=== PATIENT | male | born 1965 | race Caucasian/White ===

== ENCOUNTER 2022-05-22 07:55 | Inpatient (IN) | payer MEDICAID ==
[~2022-05-22] VITALS: Ht 167.6 cm; Wt 81.2 kg
[2022-05-22 08:20] VITALS: BP_SYST 113
--- NOTE | 2022-05-22 08:40 | NUR ---
PT BIBA AWAKE AND ALERT AOX4. NO SOB OR DISTRESS. PT COMING IN FOR MEDICAL CLEARANCE FOR WOUND TO RIGHT HIP. RIGHT HIP HAS A WOUND AND RIGHT THIGH IS SWOLLEN AND WARM TO TOUCH. PT C/O PAIN TO RIGHT UPPER LEG 01/15.
[2022-05-22] MEDS ORDERED: AMOXICILLIN/POTASSIUM CLAV 875 MG TABLET PO ONE (08:45)
--- NOTE | 2022-05-22 08:45 | NUR ---
SR SIN AT BEDSIDE
[2022-05-22] MEDS ORDERED: NACL 0.9% 1,000 ML IV ONE ×2 (09:00→12:00)
[2022-05-22] MEDS ORDERED: KETOROLAC TROMETHAMINE 30 MG VIAL IVP ONE (09:00)
[2022-05-22 09:10] LABS: BASOPHILS # (AUTO) 0.1 K/uL (0.0-0.2); BASOPHILS % (AUTO) 0.6 % (0.0-2.0); EOSINOPHILS # (AUTO) 0.5 K/uL (0.0-0.4); EOSINOPHILS % (AUTO) 3.6 % (0.0-4.0); HEMOGLOBIN 9.5 g/dL (14.0-18.0); LYMPHOCYTES # (AUTO) 1.9 K/uL (1.0-5.5); LYMPHOCYTES % (AUTO) 12.8 % (20.5-51.5); MEAN CORPUSCULAR HEMOGLOBIN 29 pg (27-31); MEAN CORPUSCULAR HGB CONC 34 % (32-36); MEAN CORPUSCULAR VOLUME 85 fL (79.0-98.0); MONOCYTES # (AUTO) 1.8 K/uL (0.0-1.0); MONOCYTES % (AUTO) 12.4 % (1.7-9.3); NEUTROPHILS # (AUTO) 10.3 K/uL (1.8-7.7); NEUTROPHILS % (AUTO) 70.6 % (40.0-70.0); PLATELET COUNT (AUTO) 400 K/uL (130-430); RED BLOOD CELL COUNT(AUTO) 3.31 MIL/uL (4.2-6.2); RED CELL DISTRIBUTION WIDTH 15.1 % (9.0-15.0); WHITE BLOOD COUNT (AUTO) 14.7 K/uL (4.8-10.8)
[2022-05-22] MEDS ORDERED: VANCOMYCIN HCL 1,000 MG in NS 250 ML IV ONE (09:30)
[2022-05-22] MEDS ORDERED: PIPERACILLIN/TAZO 3.375 GM in NS 50 ML IV ONE (09:30)
[2022-05-22 09:37] LABS: CALCIUM 10.6 mg/dL (8.4-11.0); CREATININE 0.78 mg/dL (0.55-1.30)
[2022-05-22 09:42] LABS: ALBUMIN 2.9 g/dL (3.4-4.8); TOTAL BILIRUBIN 0.5 mg/dL (0.0-1.0)
[2022-05-22 09:53] LABS: PROTHROMBIN TIME 10.8 SECS (9.5-12.5)
[2022-05-22] MEDS ORDERED: PIPERACILLIN/TAZOBACTAM 3.375 GM/VIAL (ZOSYN) IV ONE ×2 (09:54→09:56)
--- NOTE | 2022-05-22 10:08 | NUR ---
NOTIFIED ED ADMITTING REGARDING DR. FULLER'S REQUEST FOR ADMISSION/TRANSFER. PER DR. FULLER, PT IS STABLE FOR TRANSFER. WILL CONTACT HUMAN GEOGRAPHY INSTRUCTOR REGARDING THIS MATTER. PER FACESHEET: [facility] JAIME/MEDICAL- ALTYUE
[2022-05-22] MEDS ORDERED: VANCOMYCIN HCL 1000 MG/VIAL IV ONE (10:28)
--- NOTE | 2022-05-22 10:45 | NUR ---
PT TAKEN TO CT W/ CONTRAST
--- NOTE | 2022-05-22 12:12 | NUR ---
ART SALES CONSULTANT HAS NOT PAGED BACK REGARDING PT ADMISSION/TRANSFER. PER DR. FULLER, PAGE FOR ADMISSION DUE TO DELAY OF CARE. PER FACESHEET: [facility]/MEDICAL-ALTAMED DR. TIJERINA IS TALENT MANAGEMENT MANAGER [phone]
[2022-05-22] MEDS ORDERED: INSULIN LISPRO SLIDING SCALE 100 UNITS/ML, 3 ML VIAL (humaLOG) SUBCUT PRN (13:30)
[2022-05-22] MEDS ORDERED: DEXTROSE 50% JECT 50 ML DISP.SYRIN IVP PRN (13:30)
[2022-05-22] MEDS ORDERED: ONDANSETRON HCL 4 MG/2 ML VIAL IVP PRN (13:30)
[2022-05-22] MEDS ORDERED: ACETAMINOPHEN 325 MG TABLET PO PRN (13:30)
[2022-05-22] MEDS ORDERED: MORPHINE 2 MG/ML INJ. SYRINGE IVP PRN (13:30)
[2022-05-22] MEDS ORDERED: DOCUSATE SODIUM 100 MG CAPSULE PO PRN (13:30)
[2022-05-22] MEDS ORDERED: MAGNESIUM SULFATE 50 ML IV PRN (13:30)
[2022-05-22] MEDS ORDERED: LOP600 GT (15:13)
[2022-05-22] MEDS ORDERED: MOM GT (15:13)
[2022-05-22] MEDS ORDERED: SYN50 GT (15:13)
[2022-05-22] MEDS ORDERED: CEL20 GT (15:13)
[2022-05-22] MEDS ORDERED: MORP30TA59 GT (15:13)
[2022-05-22] MEDS ORDERED: NAPR-1172 PO (15:13)
[2022-05-22] MEDS ORDERED: COR25 GT (15:13)
[2022-05-22] MEDS ORDERED: LISI40TA13 GT (15:13)
[2022-05-22] MEDS ORDERED: METF-518 GT (15:13)
[2022-05-22] MEDS ORDERED: CRAN450T9 GT (15:13)
[2022-05-22] MEDS ORDERED: AMLO2.5T2 GT (15:13)
[2022-05-22] MEDS ORDERED: OMEP40CA20 PO (15:13)
[2022-05-22] MEDS ORDERED: ALPR0.5T PO (15:13)
[2022-05-22] MEDS ORDERED: HYG25 GT (15:13)
[2022-05-22] MEDS ORDERED: OXYC20TA55 PO (15:13)
--- NOTE | 2022-05-22 16:31 | NUR ---
Admit bed requested Patient will be admitted to care of Dr. TIJERINA. Admitted to TELE unit. Diagnosis SEPTIC ARTHITIS Inpatient (Yes or No) YES Observation (Yes or No) NO Orientation concerns or request close to nursing station (Yes or No) NO Covid Status NEG On vent or bipap NO Isolation requirements NO Needs a sitter NO From Home (Yes or if No enter name of facility) [facility] Requires Dialysis (Yes or No) NO Med Rec Completed (Yes of No) YES
[2022-05-22] MEDS: PIPERACILLIN/TAZO 3.375/DEX-IS 50 ML IV SCH (18:24)
--- NOTE | 2022-05-22 19:17 | NUR ---
Received report from elliott AMANDA at this time.
--- NOTE | 2022-05-22 19:20 | NUR ---
REPORT GIVEN LESA RN. PT STABLE. VSS
--- NOTE | 2022-05-22 19:21 | NUR ---
Attempted to call report at this time. INstructed by floor nurse that floor charge nurse states to wait till 1944. ER charge nurse agreed as well.
--- NOTE | 2022-05-22 19:45 | NUR ---
Attempted to call report x2. NOtified by floor nurse that floor charge nurse states that they are receiving other patients first from icu at this time. Notified er charge nurse of new information. Unable to give report at this time.
--- NOTE | 2022-05-22 20:07 | NUR ---
Patient will be admitted to care of . Admitted to Tele unit. Will go to room 107 . Belongings list completed. Complete and up to date summary report printed. SBAR report to be given at bedside with opportunity for questions.
--- NOTE | 2022-05-22 23:00 | NUR ---
TELE BOX INFORMED RN THAT TELE BOX IS OFF
[2022-05-22 23:47] LABS: CALCIUM 10.9 mg/dL (8.4-11.0); CREATININE 0.62 mg/dL (0.55-1.30)
--- NOTE | 2022-05-23 01:29 | NUR ---
CONSULTATION PAGED/CALLED Reason for Consultation: SEPTIC ARTHRITIS Person Who was Notified: ANITHA Consulting Physician: LARY LECHUGA Traffic Expert Specialty: Ordering Physician: BREEZY
[2022-05-23 07:31] LABS: CALCIUM 10.4 mg/dL (8.4-11.0); CREATININE 0.61 mg/dL (0.55-1.30)
[2022-05-23 07:41] LABS: BASOPHILS # (AUTO) 0.1 K/uL (0.0-0.2); BASOPHILS % (AUTO) 0.6 % (0.0-2.0); EOSINOPHILS # (AUTO) 0.1 K/uL (0.0-0.4); EOSINOPHILS % (AUTO) 1.1 % (0.0-4.0); HEMATOCRIT 27.9 % (36-54); HEMOGLOBIN 9.5 g/dL (14.0-18.0); LYMPHOCYTES # (AUTO) 1.2 K/uL (1.0-5.5); LYMPHOCYTES % (AUTO) 9.8 % (20.5-51.5); MEAN CORPUSCULAR HEMOGLOBIN 29 pg (27-31); MEAN CORPUSCULAR HGB CONC 34 % (32-36); MEAN CORPUSCULAR VOLUME 85 fL (79.0-98.0); MONOCYTES # (AUTO) 1.2 K/uL (0.0-1.0); NEUTROPHILS # (AUTO) 9.8 K/uL (1.8-7.7); NEUTROPHILS % (AUTO) 78.5 % (40.0-70.0); PLATELET COUNT (AUTO) 417 K/uL (130-430); RED BLOOD CELL COUNT(AUTO) 3.29 MIL/uL (4.2-6.2); RED CELL DISTRIBUTION WIDTH 15.4 % (9.0-15.0); WHITE BLOOD COUNT (AUTO) 12.4 K/uL (4.8-10.8)
[2022-05-23] MEDS: PIPERACILLIN/TAZO 3.375/DEX-IS 50 ML IV SCH ×4 (07:59→18:35)
[2022-05-23 08:00] VITALS: BP_SYST 142
[2022-05-23] MEDS: VANCOMYCIN HCL 1,000 MG in NS 250 ML IV SCH ×3 (08:07→21:08)
[2022-05-23] MEDS: MORPHINE 2 MG/ML INJ. SYRINGE IVP PRN ×3 (08:24→21:16)
[2022-05-23 08:45] VITALS: BP_SYST 142
[2022-05-23] MEDS: amLODIPine BESYLATE 5 MG TABLET GT SCH ×2 (09:00→21:10)
[2022-05-23] MEDS: MILK OF MAGNESIA 30 ML UDC GT SCH (09:00)
[2022-05-23] MEDS: CARVEDILOL 25 MG TABLET (COREG) GT SCH ×2 (09:00→21:09)
[2022-05-23] MEDS: GEMFIBROZIL 600 MG TABLET (LOPID) GT SCH (09:00)
[2022-05-23] MEDS: CHLORTHALIDONE 25 MG TABLET (HYGROTON) GT SCH (09:00)
--- NOTE | 2022-05-23 10:58 | NUR ---
0800 DR LECHUGA AT BEDSIDE EXAMINING PATIENT. INFORMED PT AND GOLD LEAF PRINTER THAT HE WILL ORDER MRI OF THE RIGHT HIP AND TO KEEP THE PATIENT NPO
[2022-05-23 11:49] VITALS: BP_SYST 147
--- NOTE | 2022-05-23 12:00 | NUR ---
Report received from Amy AMANDA. Pt is stable at this time. Pt is asleep but aroudable, otherwise a/ox 4, vs stable, no acute distress noted, NSR on tele. NPO called MD to obtain diet. Repositioned and turned q2 hours to prevent skin breakdown. Awaiting for a working camera to take pictures of multiple wounds.Right groin lesion with drainage with foul smell noted, left and right buttocks with pressure ulcer noted, and right hip redness and warm to touch noted. Labs reviewed. K 3.0 will give potassium chloride as ordered. Assuming care for pt.
[2022-05-23] MEDS: POTASSIUM CHLORIDE 20 MEQ TAB.PRT.SR PO PRN (13:36)
[2022-05-23 16:05] VITALS: BP_SYST 146
--- NOTE | 2022-05-23 16:49 | NUR ---
SUMMARY OF CARE LATE ENTRY DUE TO PT CARE 0800- RECEIVED REPORT FROM TREASURE WEBSTER. PT IS BED , DR LECHUGA AT THE BEDSIDE. ASSISTED PATIENT IN TURNING FOR MD TO EXAMINE. PLAN OF CARE DISCUSSED WITH PATIENT. IV ANTIBIOTICS ADMINISTERED. KEPT PT CLEAN AND DRY 1230- REPORT GIVEN TO MÓNICA WHO WILL TAKE OVER PT CARE
--- NOTE | 2022-05-23 17:50 | NUR ---
ORIANA: NAIMA with Sandra Colon/Angelica # [phone], requesting the melvina gastelum to call me back re transfer pt to higher level of care for resection of femoral head and antibiotic spacer. Addendum: 05/23/22 at 1821 by Miriam Ryan RN S/w melvina GASTELUM/Génesis for the transfer to [facility]. She will have peer to peer with dr. Henry tomorrow and planing to send pt to [facility]. Faxing the referral package fax # [phone], tel [phone].
--- NOTE | 2022-05-23 18:00 | NUR ---
Wound photos taken and filed in the chart. Pt stable at this time.
--- NOTE | 2022-05-23 19:15 | NUR ---
OPENING NOTES Patient resting in bed - no s/s pain or distress noted. Respirations even and unlabored - head of bed elevated. IV site patent - no s/s redness, infection, or infiltration. Bed locked and in lowest position - call light within reach. bed alarm on.
[2022-05-23 20:00] VITALS: BP_SYST 153
--- NOTE | 2022-05-23 20:19 | NUR ---
Report given to Caesar AMANDA. Pt stable at this time.
[2022-05-24] MEDS: PIPERACILLIN/TAZO 3.375/DEX-IS 50 ML IV SCH ×5 (00:29→23:47)
[2022-05-24 00:33] VITALS: BP_SYST 130
[2022-05-24] MEDS: MORPHINE 2 MG/ML INJ. SYRINGE IVP PRN ×6 (01:12→22:23)
[2022-05-24] MEDS: LEVOTHYROXINE SODIUM 0.05 MG TABLET GT SCH (06:53)
--- NOTE | 2022-05-24 08:00 | NUR ---
NOTES 0800- PATIENT IN BED, TOOK BREAKFAST, LEFT LOWER LEG EXTREMITIES AND LEFT HIP SWOLLEN. 1100- DR PRADO CAME AND SAW PATIENT, TO START LOVENOX.
[2022-05-24 08:06] LABS: BASOPHILS # (AUTO) 0.1 K/uL (0.0-0.2); BASOPHILS % (AUTO) 0.9 % (0.0-2.0); EOSINOPHILS # (AUTO) 0.2 K/uL (0.0-0.4); EOSINOPHILS % (AUTO) 1.6 % (0.0-4.0); HEMATOCRIT 27.4 % (36-54); HEMOGLOBIN 9.4 g/dL (14.0-18.0); LYMPHOCYTES # (AUTO) 2.2 K/uL (1.0-5.5); LYMPHOCYTES % (AUTO) 18.4 % (20.5-51.5); MEAN CORPUSCULAR HEMOGLOBIN 29 pg (27-31); MEAN CORPUSCULAR HGB CONC 34 % (32-36); MEAN CORPUSCULAR VOLUME 85 fL (79.0-98.0); MONOCYTES # (AUTO) 1.3 K/uL (0.0-1.0); MONOCYTES % (AUTO) 10.8 % (1.7-9.3); NEUTROPHILS # (AUTO) 8.2 K/uL (1.8-7.7); NEUTROPHILS % (AUTO) 68.3 % (40.0-70.0); PLATELET COUNT (AUTO) 424 K/uL (130-430); RED BLOOD CELL COUNT(AUTO) 3.23 MIL/uL (4.2-6.2); RED CELL DISTRIBUTION WIDTH 15.4 % (9.0-15.0)
[2022-05-24 08:45] LABS: CALCIUM 9.8 mg/dL (8.4-11.0); CREATININE 0.66 mg/dL (0.55-1.30)
[2022-05-24 09:27] VITALS: BP_SYST 153
--- NOTE | 2022-05-24 10:01 | NUR ---
HIGH ALERT NOTE: Called Dr. Momin back at [phone] identified within the medical roster to verify physician authenticity.
[2022-05-24] MEDS: CARVEDILOL 25 MG TABLET (COREG) GT SCH ×2 (10:57→21:09)
[2022-05-24] MEDS: GEMFIBROZIL 600 MG TABLET (LOPID) GT SCH (10:58)
[2022-05-24] MEDS: CHLORTHALIDONE 25 MG TABLET (HYGROTON) GT SCH (10:58)
[2022-05-24] MEDS: amLODIPine BESYLATE 5 MG TABLET GT SCH ×2 (10:59→21:08)
[2022-05-24] MEDS ORDERED: POTASSIUM CHLORIDE 40 MEQ, LIDOCAINE JECT 2% PF 100 MG 50 MG in NS 250 ML IV ONE (11:00)
[2022-05-24] MEDS: POTASSIUM CHLORIDE 20 MEQ TAB.PRT.SR PO PRN (11:01)
[2022-05-24] MEDS: VANCOMYCIN HCL 1,000 MG in NS 250 ML IV SCH ×2 (11:02→21:09)
[2022-05-24 11:29] VITALS: BP_SYST 155
[2022-05-24] MEDS ORDERED: ENOXAPARIN SODIUM 40 MG/0.4 ML SYRINGE SUBCUT ONE (12:00)
[2022-05-24] MEDS: MILK OF MAGNESIA 30 ML UDC GT SCH (12:41)
[2022-05-24] MEDS ORDERED: MORPHINE 2 MG/ML INJ. SYRINGE IVP ONE (14:15)
[2022-05-24 15:28] VITALS: BP_SYST 149
--- NOTE | 2022-05-24 15:47 | NUR ---
Dietitian Recommendations Initiate dual nutrition modalities: * CCHO, 2 gm Na diet * Glucerna 1.5 at 55 ml/hr (goal rate), Oracio BID, Free Water Flush: 200 ml Q6h via GT EN Provides: 2140 kcal/day, 114 gm protein/day, and 1802 ml free water EN Meets: 95% of upper end of estimated caloric needs, 88% of upper end of estimated protein needs, and 90% of lower end of estimated fluid needs LP, MS, RD Please refer to Nutrition Assessment for details. Addendum: 05/24/22 at [address] Amended: Links added.
[2022-05-24 20:20] VITALS: BP_SYST 152
--- NOTE | 2022-05-24 21:40 | NUR ---
Pericare/Wound care Pt incontinent of soft stool. Pericare provided. Sacral dressing changed as needed. Z guard applied to periwound, no drainage, no odor noted. Pt tolerated well. Pt repositioned.
--- NOTE | 2022-05-24 22:23 | NUR ---
Pain Pt c/o 01/15 ache/sharp R. hip pain. Medicated with Morphine 2mg IVP as needed. Encouraged pt to do deep breathing, coughing exercise, pt verb understanding. Call light within reach.
[2022-05-25] VITALS: BP_SYST 158
[2022-05-25] MEDS: MORPHINE 2 MG/ML INJ. SYRINGE IVP PRN ×6 (02:28→21:12)
[2022-05-25] MEDS: PIPERACILLIN/TAZO 3.375/DEX-IS 50 ML IV SCH ×3 (06:06→19:08)
[2022-05-25] MEDS: LEVOTHYROXINE SODIUM 0.05 MG TABLET GT SCH (06:06)
--- NOTE | 2022-05-25 07:00 | NUR ---
Closing notes/Wound care Pt alert, awake, watching TV. R. upper thigh dressing soiled with serousangenous drainage, no odor. Cleansed with NS, patted dry, and applied guaze and covered with tegarderm dressing. Pt tolerated well. GT feeding running at ordered rate with FWF 200ml, tolerating well. Pt incontinent of BM, pericare provided. Call light within reach. Safety maintained. To endorse to AM nurse.
--- NOTE | 2022-05-25 07:34 | NUR ---
Opening Notes Pt. is AAOx4, no signs of acute distress, fall precautions in place, call light within reach, pressure wound precautions in place and patient is assisted in turning every 2 hours.
[2022-05-25] MEDS: GEMFIBROZIL 600 MG TABLET (LOPID) GT SCH (08:48)
[2022-05-25] MEDS: ENOXAPARIN SODIUM 40 MG/0.4 ML SYRINGE SUBCUT SCH (08:48)
[2022-05-25] MEDS: CHLORTHALIDONE 25 MG TABLET (HYGROTON) GT SCH (08:49)
[2022-05-25] MEDS: CARVEDILOL 25 MG TABLET (COREG) GT SCH ×2 (08:49→21:10)
[2022-05-25] MEDS: MILK OF MAGNESIA 30 ML UDC GT SCH ×2 (08:50→09:00)
[2022-05-25] MEDS: amLODIPine BESYLATE 5 MG TABLET GT SCH ×2 (08:50→21:09)
[2022-05-25 08:59] VITALS: BP_SYST 151
[2022-05-25 09:56] LABS: CALCIUM 10.1 mg/dL (8.4-11.0); CREATININE 0.67 mg/dL (0.55-1.30)
[2022-05-25 10:05] LABS: BASOPHILS # (AUTO) 0.2 K/uL (0.0-0.2); BASOPHILS % (AUTO) 1.2 % (0.0-2.0); EOSINOPHILS # (AUTO) 0.5 K/uL (0.0-0.4); EOSINOPHILS % (AUTO) 3.8 % (0.0-4.0); HEMOGLOBIN 9.7 g/dL (14.0-18.0); LYMPHOCYTES # (AUTO) 2.9 K/uL (1.0-5.5); LYMPHOCYTES % (AUTO) 22.8 % (20.5-51.5); MEAN CORPUSCULAR HEMOGLOBIN 29 pg (27-31); MEAN CORPUSCULAR HGB CONC 33 % (32-36); MEAN CORPUSCULAR VOLUME 85 fL (79.0-98.0); MONOCYTES # (AUTO) 1.2 K/uL (0.0-1.0); MONOCYTES % (AUTO) 9.4 % (1.7-9.3); NEUTROPHILS # (AUTO) 8.1 K/uL (1.8-7.7); NEUTROPHILS % (AUTO) 62.8 % (40.0-70.0); PLATELET COUNT (AUTO) 413 K/uL (130-430); RED CELL DISTRIBUTION WIDTH 15.3 % (9.0-15.0); WHITE BLOOD COUNT (AUTO) 12.9 K/uL (4.8-10.8)
[2022-05-25] MEDS: VANCOMYCIN HCL 1,000 MG in NS 250 ML IV SCH ×2 (10:29→21:21)
[2022-05-25 11:25] VITALS: BP_SYST 153
--- NOTE | 2022-05-25 13:18 | NUR ---
Critical Micro Informed Dr. Roque of positive MRSA result, no orders given.
[2022-05-25] MEDS ORDERED: MORPHINE 2 MG/ML INJ. SYRINGE IVP ONE (13:30)
[2022-05-25 15:26] VITALS: BP_SYST 148
[2022-05-25] MEDS: POTASSIUM CHLORIDE 20 MEQ TAB.PRT.SR PO PRN (17:29)
--- NOTE | 2022-05-25 17:29 | NUR ---
Potassium level is 3.3, prn oral potassium tablets given total of 40 meqs, prn parameter give if less than 3.5.
--- NOTE | 2022-05-25 19:57 | NUR ---
Closing Note Pt. is AAOx4, had an episode of loose stool, pericare rendered and dressing on bilateral buttocks changed, cleanses with ns and applied barrier cream along with foam dressing. Full SBAR report given to TREASURE Dean, and endorsed to give prn pain medication once due since pt. is currently reporting pain after turning. Addendum: 05/25/22 at 1959 by [facility] Lauren, TREASURE AMANDA Also endorsed to Dianne that final micro results for the wound on patients thigh have resulted, paged twice with no callback.
[2022-05-25 20:00] VITALS: BP_SYST 174
[2022-05-25] MEDS: MUPIROCIN 2% TOPICAL OINTMENT 22 GM NS SCH (21:12)
[2022-05-26] VITALS: BP_SYST 151
[2022-05-26] MEDS: PIPERACILLIN/TAZO 3.375/DEX-IS 50 ML IV SCH ×3 (00:13→11:30)
[2022-05-26] MEDS: MORPHINE 2 MG/ML INJ. SYRINGE IVP PRN ×3 (01:09→16:30)
[2022-05-26 04:00] VITALS: BP_SYST 149
[2022-05-26] MEDS: LEVOTHYROXINE SODIUM 0.05 MG TABLET GT SCH (06:17)
[2022-05-26 07:22] LABS: BASOPHILS # (AUTO) 0.1 K/uL (0.0-0.2); BASOPHILS % (AUTO) 1.1 % (0.0-2.0); EOSINOPHILS # (AUTO) 0.6 K/uL (0.0-0.4); EOSINOPHILS % (AUTO) 5.4 % (0.0-4.0); HEMATOCRIT 29.7 % (36-54); HEMOGLOBIN 10.2 g/dL (14.0-18.0); LYMPHOCYTES # (AUTO) 2.6 K/uL (1.0-5.5); LYMPHOCYTES % (AUTO) 22.9 % (20.5-51.5); MEAN CORPUSCULAR HEMOGLOBIN 29 pg (27-31); MEAN CORPUSCULAR HGB CONC 34 % (32-36); MEAN CORPUSCULAR VOLUME 85 fL (79.0-98.0); MONOCYTES # (AUTO) 1.3 K/uL (0.0-1.0); MONOCYTES % (AUTO) 11.2 % (1.7-9.3); NEUTROPHILS # (AUTO) 6.7 K/uL (1.8-7.7); NEUTROPHILS % (AUTO) 59.4 % (40.0-70.0); PLATELET COUNT (AUTO) 394 K/uL (130-430); RED BLOOD CELL COUNT(AUTO) 3.48 MIL/uL (4.2-6.2); RED CELL DISTRIBUTION WIDTH 15.2 % (9.0-15.0); WHITE BLOOD COUNT (AUTO) 11.3 K/uL (4.8-10.8)
[2022-05-26 07:33] LABS: CALCIUM 9.1 mg/dL (8.4-11.0); CREATININE 0.75 mg/dL (0.55-1.30)
[2022-05-26] MEDS ORDERED: oxyCODONE HCL 10 MG TAB.ER.12H PO ONE (09:15)
[2022-05-26] MEDS: CARVEDILOL 25 MG TABLET (COREG) GT SCH ×2 (10:53→21:35)
[2022-05-26] MEDS: amLODIPine BESYLATE 5 MG TABLET GT SCH ×2 (10:54→21:36)
[2022-05-26] MEDS: ENOXAPARIN SODIUM 40 MG/0.4 ML SYRINGE SUBCUT SCH (10:55)
[2022-05-26] MEDS: GEMFIBROZIL 600 MG TABLET (LOPID) GT SCH (10:56)
[2022-05-26] MEDS: MILK OF MAGNESIA 30 ML UDC GT SCH (10:56)
[2022-05-26] MEDS: MUPIROCIN 2% TOPICAL OINTMENT 22 GM NS SCH ×2 (11:14→21:34)
[2022-05-26] MEDS: CHLORTHALIDONE 25 MG TABLET (HYGROTON) GT SCH (11:14)
[2022-05-26] MEDS: VANCOMYCIN HCL 1,000 MG in NS 250 ML IV SCH (11:15)
[2022-05-26 11:29] VITALS: BP_SYST 162
[2022-05-26 15:36] VITALS: BP_SYST 141
--- NOTE | 2022-05-26 17:10 | NUR ---
ST EVALUATION COMPLETED. ST TX NOT INDICATED AT THIS TIME. RECOMMEND CONTINUE PO DIET OF REGULAR/THIN LIQUIDS. DISTANT SUPERVISION AND FULL ASPIRATION PRECAUTIONS.
[2022-05-26 20:00] VITALS: BP_SYST 157
[2022-05-26] MEDS: SULFAMETHOXAZOLE/TRIMETHOPR DS 1 TABLET PO SCH (21:34)
[2022-05-26] MEDS: oxyCODONE HCL 10 MG TAB.ER.12H PO SCH (21:34)
[2022-05-26] MEDS: ALPRAZolam 0.25 MG TABLET PO PRN (21:35)
[2022-05-27] MEDS: MORPHINE 2 MG/ML INJ. SYRINGE IVP PRN ×2 (00:36→16:15)
[2022-05-27 00:45] VITALS: BP_SYST 143
[2022-05-27 04:00] VITALS: BP_SYST 139
[2022-05-27] MEDS: LEVOTHYROXINE SODIUM 0.05 MG TABLET GT SCH (06:39)
--- NOTE | 2022-05-27 07:12 | NUR ---
ALL NEEDS ANTICIPATED AND MET NO DISTRESS LARGE BM CONTINENT OF URINE COMPLAINED OF PAIN AND MEDICATIED S ORDERED AT 0 PT ENDORSED HE WAS ANXIOUS GIVEN XANAX WITH PM MEDS AND PER PT MED WAS EFFECTIVE NO DISTRESS CALL LIGHT IN REACH
[2022-05-27 07:28] LABS: BASOPHILS # (AUTO) 0.1 K/uL (0.0-0.2); EOSINOPHILS # (AUTO) 0.9 K/uL (0.0-0.4); EOSINOPHILS % (AUTO) 6.5 % (0.0-4.0); HEMOGLOBIN 10.6 g/dL (14.0-18.0); LYMPHOCYTES # (AUTO) 3.4 K/uL (1.0-5.5); MEAN CORPUSCULAR HEMOGLOBIN 29 pg (27-31); MEAN CORPUSCULAR HGB CONC 34 % (32-36); MEAN CORPUSCULAR VOLUME 85 fL (79.0-98.0); MONOCYTES # (AUTO) 1.4 K/uL (0.0-1.0); NEUTROPHILS # (AUTO) 7.3 K/uL (1.8-7.7); NEUTROPHILS % (AUTO) 55.5 % (40.0-70.0); PLATELET COUNT (AUTO) 358 K/uL (130-430); RED BLOOD CELL COUNT(AUTO) 3.63 MIL/uL (4.2-6.2); RED CELL DISTRIBUTION WIDTH 15.4 % (9.0-15.0); WHITE BLOOD COUNT (AUTO) 13.1 K/uL (4.8-10.8)
[2022-05-27 07:30] LABS: CALCIUM 9.3 mg/dL (8.4-11.0); CREATININE 0.84 mg/dL (0.55-1.30)
[2022-05-27] MEDS: MILK OF MAGNESIA 30 ML UDC GT SCH (09:00)
[2022-05-27] MEDS ORDERED: LEVO-62 PO (09:54)
[2022-05-27] MEDS ORDERED: OXYC20TA55 PO (09:54)
[2022-05-27] MEDS ORDERED: SULF1TAB48 PO (09:54)
[2022-05-27 11:30] VITALS: BP_SYST 148
--- NOTE | 2022-05-27 11:34 | NUR ---
Discharge Planning: DCP faxed pt referral to August [phone] DCP to follow up.
[2022-05-27 15:32] VITALS: BP_SYST 151
[2022-05-27] MEDS ORDERED: LOPERAMIDE HCL 2 MG CAPSULE PO ONE (16:00)
[2022-05-27] MEDS: CARVEDILOL 25 MG TABLET (COREG) GT SCH ×2 (16:04→21:02)
[2022-05-27] MEDS: CHLORTHALIDONE 25 MG TABLET (HYGROTON) GT SCH (16:05)
[2022-05-27] MEDS: GEMFIBROZIL 600 MG TABLET (LOPID) GT SCH (16:06)
[2022-05-27] MEDS: amLODIPine BESYLATE 5 MG TABLET GT SCH ×2 (16:07→21:02)
[2022-05-27] MEDS: SULFAMETHOXAZOLE/TRIMETHOPR DS 1 TABLET PO SCH ×2 (16:08→21:03)
[2022-05-27] MEDS: MUPIROCIN 2% TOPICAL OINTMENT 22 GM NS SCH ×2 (16:08→21:01)
[2022-05-27] MEDS: oxyCODONE HCL 10 MG TAB.ER.12H PO SCH ×2 (16:09→21:03)
[2022-05-27] MEDS: ENOXAPARIN SODIUM 40 MG/0.4 ML SYRINGE SUBCUT SCH (16:10)
[2022-05-27 20:00] VITALS: BP_SYST 155
--- NOTE | 2022-05-27 20:17 | NUR ---
Nutrition F/U: Admitting Diagnosis Septic arthritis Reviewed Pertinent Medical/Surgical Hx Medical Record; RN Medical History Comment: Per EMR review, 57 YOM w/ PMH of HTN, DM, hypothyroidism, GT, chronically bedbound who was brought into the ED for evaluation of R thigh wound infection. Pt is from [facility]. Pt is a poor historian although did state that on November 08, 2021 he was admitted to [facility] for respiratory infection. He soon later developed R hip pain. This was evaluated and found to be septic arthritis. He underwent posterior hip irrigation and debridement with possible IR catheter drain placement. He was discharged 2 weeks later to a nursing facility. He is unsure whether he received IV antibiotics for his infection. He was brought to the hospital as his pain has worsened. He has been unable to ambulate since his initial onset in November. Has been bedbound in [facility]. 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 Per ortho surgeon notes, pt has significant erosive changes 2/2 chronic septic hip. He will likely need resection arthroplasty with ABX spacer placement followed by two-stage procedure. This should be done at an academic center given complexity associated with the procedure. S/p ST evaluation 05/26: ok for regular textures Subjective Information: NC received 05/25/22 at [address] bed side visit deferred d/t high RD workload. RD s/w patient RN who stated patient is tolerating PO diet and EN is running at goal rate. Per RD chart review, pt consuming 44% x 6 meals and tolerating TF with 0mL GRV documented. LBM x 2 on 05/26. Per RN, pt is likely staying at [facility] until tomorrow morning then will be d/c. Current Diet Order/Nutrition Support: CCHO, 2gNa x 3 days Glucerna 1.5 at 55mL/hr (goal rate), Oracio BID; Free WF 200mL Q6H via GT x 3 days Pertinent Medications: Synthroid, oxycodone, Lovenox, MOM, Lopid, Hygroton, Coreg Pertinent Labs: Drawn 05/27 - K 3.3 L, BG 86 NL, POC BG 113 H, WBC 13.1 H Height (Feet) 5 feet Height (Inches) 6.00 inches Weight (Pounds) 179 pounds/ 81.193 kg Body Mass Index 28.89 kg/m2 Usual Weight 200 lbs %UBW 90 %IBW 126 [place]/Adjusted Body Weight 142#/64.5 kg. 151#/68.8 kg Recent Weight Change Yes - 21# unintentional wt loss/11% wt change within 1 year Weight Status Overweight Last BM May 26, 2022 Food Allergies No Usual Diet At Home Regular per nursing nutritional screening Skin Integrity Comment: Noah scale 13: right thigh erythema, sacrum w/ intertriginous dermatitis Edema: BLE non-pitting noted 05/24 Current % PO Poor, improved 44% x 6 meals Estimated Energy Expenditure (kcals/day) 9335-5853 (30-35 kcal/kg IBW d/t obesity, wound healing, possible Sx) Estimated Protein Required (g/day) 97-129 (1.5-2 gm/kg IBW d/t obesity, wound healing, possible Sx) Estimated Fluid Required (l/day) 2-2.4 (1 ml/kcal/day for adult maintenance) Problem/Etiology/Signs/Symptoms * Increased nutritional needs R/T metabolic demands AEB estimated nutritional requirements for wound healing and possible Sx (on-going) * Severe malnutrition in the context of chronic illness R/T inadequate protein-energy intake w/ increased protein-energy needs a/w wound healing and possible Sx AEB minimal PO intakes, 21# unintentional wt loss/11% wt change within 1 year, infected R hip, and no current EN support order (On-going) Expected Outcomes/Goals - Monitor appetite, PO intakes, and provision of EN support w/ goal of pt meeting at least 80% of estimated nutritional needs, labs trending WNL, normal GI function, and skin integrity/wt maintenance Dietitian Recommendations * Continue CCHO, 2 gm Na diet * Continue Glucerna 1.5 at 55 ml/hr (goal rate), Oracio BID, Free Water Flush: 200 ml Q6h via GT EN Provides: 2140 kcal/day, 114 gm protein/day, and 1802 ml free water EN Meets: 95% of upper kcals, 88% of upper PRO, and 90% of lower fluids * Consider wound supplements: 250mg VIT C, 60mg ZnSO4 BID Follow Up High Risk: F/U in 2-3days
--- NOTE | 2022-05-27 20:21 | NUR ---
Dietitian Recommendations * Continue CCHO, 2 gm Na diet * Continue Glucerna 1.5 at 55 ml/hr (goal rate), Oracio BID, Free Water Flush: 200 ml Q6h via GT EN Provides: 2140 kcal/day, 114 gm protein/day, and 1802 ml free water EN Meets: 95% of upper kcals, 88% of upper PRO, and 90% of lower fluids * Consider wound supplements: 250mg VIT C, 60mg ZnSO4 BID Please refer to nutrition F/U for details, thanks! Le Avila MPH, RDN
[2022-05-27] MEDS: ALPRAZolam 0.25 MG TABLET PO PRN (21:02)
[2022-05-28] VITALS: BP_SYST 148
[2022-05-28] MEDS: MORPHINE 2 MG/ML INJ. SYRINGE IVP PRN ×3 (00:01→17:06)
[2022-05-28 00:53] VITALS: BP_SYST 137
[2022-05-28 04:00] VITALS: BP_SYST 135
[2022-05-28] MEDS: LEVOTHYROXINE SODIUM 0.05 MG TABLET GT SCH (06:39)
--- NOTE | 2022-05-28 06:42 | NUR ---
NO CHANGES THROUGHOUT SHIFT ALL NEEDS ANTICIPATED AND MET NO SIGNIFICANT CHANGES NO ACUTE DISTRESS NOTED
[2022-05-28] MEDS: MILK OF MAGNESIA 30 ML UDC GT SCH (09:00)
[2022-05-28] MEDS: oxyCODONE HCL 10 MG TAB.ER.12H PO SCH (09:20)
[2022-05-28 11:41] VITALS: BP_SYST 142
[2022-05-28] MEDS: amLODIPine BESYLATE 5 MG TABLET GT SCH ×2 (12:05→21:15)
[2022-05-28] MEDS: MUPIROCIN 2% TOPICAL OINTMENT 22 GM NS SCH (12:06)
[2022-05-28] MEDS: ENOXAPARIN SODIUM 40 MG/0.4 ML SYRINGE SUBCUT SCH (12:07)
[2022-05-28] MEDS: GEMFIBROZIL 600 MG TABLET (LOPID) GT SCH (12:08)
[2022-05-28] MEDS: CHLORTHALIDONE 25 MG TABLET (HYGROTON) GT SCH (12:11)
[2022-05-28] MEDS: SULFAMETHOXAZOLE/TRIMETHOPR DS 1 TABLET PO SCH ×2 (12:15→21:00)
[2022-05-28] MEDS: CARVEDILOL 25 MG TABLET (COREG) GT SCH ×2 (12:16→20:59)
[2022-05-28 15:26] VITALS: BP_SYST 122
[2022-05-28 16:00] VITALS: BP_SYST 132
[2022-05-28] MEDS: MORPHINE SULFATE 30 MG TABLET.SA PO SCH (21:00)
[2022-05-28] MEDS: oxyCODONE HCL 10 MG TAB.ER.12H PO PRN (23:00)
[2022-05-29 01:16] VITALS: BP_SYST 127
[2022-05-29] MEDS: ALPRAZolam 0.25 MG TABLET PO PRN (02:18)
--- NOTE | 2022-05-29 03:00 | NUR ---
Received report from TREASURE Amaya for continuity of care.
[2022-05-29] MEDS: LEVOTHYROXINE SODIUM 0.05 MG TABLET GT SCH (06:15)
[2022-05-29] MEDS: oxyCODONE HCL 10 MG TAB.ER.12H PO PRN ×2 (06:17→14:46)
--- NOTE | 2022-05-29 06:45 | NUR ---
Closing notes/wound care Pt awake, alert, talking on the phone. BS checked 102. Wound care dressing changed on R. thigh, noted serous drainage. Pt tolerated well. CAll light within reach. Safety/contact isolation maintained. To endorse to AM nurse.
[2022-05-29] MEDS: MUPIROCIN 2% TOPICAL OINTMENT 22 GM NS SCH ×3 (08:30→21:33)
[2022-05-29] MEDS: MILK OF MAGNESIA 30 ML UDC GT SCH (08:35)
[2022-05-29] MEDS: ENOXAPARIN SODIUM 40 MG/0.4 ML SYRINGE SUBCUT SCH (09:16)
[2022-05-29] MEDS: CARVEDILOL 25 MG TABLET (COREG) GT SCH ×2 (09:23→21:32)
[2022-05-29] MEDS: amLODIPine BESYLATE 5 MG TABLET GT SCH ×2 (09:25→21:33)
[2022-05-29] MEDS: MORPHINE SULFATE 30 MG TABLET.SA PO SCH ×2 (09:26→21:34)
[2022-05-29] MEDS: GEMFIBROZIL 600 MG TABLET (LOPID) GT SCH (09:26)
[2022-05-29] MEDS: SULFAMETHOXAZOLE/TRIMETHOPR DS 1 TABLET PO SCH ×2 (09:44→21:00)
[2022-05-29] MEDS: CHLORTHALIDONE 25 MG TABLET (HYGROTON) GT SCH (09:46)
[2022-05-29 11:28] VITALS: BP_SYST 120
[2022-05-29 15:29] VITALS: BP_SYST 116
[2022-05-29 16:00] VITALS: BP_SYST 133
[2022-05-29 20:00] VITALS: BP_SYST 122
[2022-05-30] MEDS: oxyCODONE HCL 10 MG TAB.ER.12H PO PRN ×4 (00:58→17:48)
[2022-05-30 01:22] VITALS: BP_SYST 114
--- NOTE | 2022-05-30 05:52 | NUR ---
Pt. needs met this shift, given pain meds as requested with good results. Pt. aaox4, kept dry and clean. Dressing to right upper thigh in place with some blood noted. Call light in reach
[2022-05-30] MEDS: LEVOTHYROXINE SODIUM 0.05 MG TABLET GT SCH (06:12)
--- NOTE | 2022-05-30 06:45 | NUR ---
Pt. with red small dots on his arms that itch. Will endorse to day shift to alert MD possible Dermatology consult needed.
[2022-05-30] MEDS: MILK OF MAGNESIA 30 ML UDC GT SCH (08:41)
[2022-05-30] MEDS: GEMFIBROZIL 600 MG TABLET (LOPID) GT SCH (09:00)
[2022-05-30] MEDS: CARVEDILOL 25 MG TABLET (COREG) GT SCH ×2 (10:40→21:27)
[2022-05-30] MEDS: CHLORTHALIDONE 25 MG TABLET (HYGROTON) GT SCH (10:41)
[2022-05-30] MEDS: amLODIPine BESYLATE 5 MG TABLET GT SCH ×2 (10:43→21:28)
[2022-05-30] MEDS: MUPIROCIN 2% TOPICAL OINTMENT 22 GM NS SCH (10:44)
[2022-05-30] MEDS: SULFAMETHOXAZOLE/TRIMETHOPR DS 1 TABLET PO SCH ×2 (10:45→21:28)
[2022-05-30] MEDS: MORPHINE SULFATE 30 MG TABLET.SA PO SCH ×2 (10:46→21:27)
[2022-05-30] MEDS: ENOXAPARIN SODIUM 40 MG/0.4 ML SYRINGE SUBCUT SCH (10:47)
--- NOTE | 2022-05-30 11:18 | NUR ---
Nutrition F/U: Admitting Diagnosis Septic arthritis Reviewed Pertinent Medical/Surgical Hx Medical Record; RN Medical History Comment: Per EMR review, 57 YOM w/ PMH of HTN, DM, hypothyroidism, GT, chronically bedbound who was brought into the ED for evaluation of R thigh wound infection. Pt is from [facility]. Pt is a poor historian although did state that on November 08, 2021 he was admitted to [facility] for respiratory infection. He soon later developed R hip pain. This was evaluated and found to be septic arthritis. He underwent posterior hip irrigation and debridement with possible IR catheter drain placement. He was discharged 2 weeks later to a nursing facility. He is unsure whether he received IV antibiotics for his infection. He was brought to the hospital as his pain has worsened. He has been unable to ambulate since his initial onset in November. [facility] been bed[facility] in [facility]. 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 Per ortho surgeon notes, pt has significant erosive changes 2/2 chronic septic hip. He will likely need resection arthroplasty with ABX spacer placement followed by two-stage procedure. This should be done at an academic center given complexity associated with the procedure. S/p ST evaluation 05/26: ok for regular textures Subjective Information: Pt is getting D/C to SNF today per LOS and pts chart. RD bed side visit deferred d/t high RD workload. RD sees that pt is receiving goal rate of TF (55mL/hr) and documented meal intake is improving (67% average x 9 meals). [address] RD chart review,pt is tolerating TF with 0mL GRV documented. LBM x 2 on 05/26. Current Diet Order/Nutrition Support: CCHO, 2gNa x 6 days Glucerna 1.5 at 55mL/hr (goal rate), Oracio BID; Free WF 200mL Q6H via GT x 6 days Pertinent Medications: Synthroid, oxycodone, Lovenox, Lopid, Hygroton, Coreg Pertinent Labs: Drawn 05/27 - K 3.3 L, BG 86 NL, POC BG 113 H, WBC 13.1 H Height (Feet) 5 feet Height (Inches) 6.00 inches Weight (Pounds) 179 pounds/ 81.193 kg Body Mass Index 28.89 kg/m2 Usual Weight 200 lbs %UBW 90 %IBW 126 [place]/Adjusted Body Weight 142#/64.5 kg. 151#/68.8 kg Recent Weight Change Yes - 21# unintentional wt loss/11% wt change within 1 year Weight Status Overweight Last BM May 26, 2022 Food Allergies No Usual Diet At Home Regular per nursing nutritional screening Skin Integrity Comment: Noah scale 16: right thigh erythema, sacrum w/ intertriginous dermatitis Edema: BLE non-pitting noted 05/24 Current % PO Fair, improving 67% x 9 meals Estimated Energy Expenditure (kcals/day) 2106-7869 (30-35 kcal/kg IBW d/t obesity, wound healing, possible Sx) Estimated Protein Required (g/day) 97-129 (1.5-2 gm/kg IBW d/t obesity, wound healing, possible Sx) Estimated Fluid Required (l/day) 2-2.4 (1 ml/kcal/day for adult maintenance) Problem/Etiology/Signs/Symptoms * Increased nutritional needs R/T metabolic demands AEB estimated nutritional requirements for wound healing and possible Sx (on-going) * Severe malnutrition in the context of chronic illness R/T inadequate protein-energy intake w/ increased protein-energy needs a/w wound healing and possible Sx AEB minimal PO intakes, 21# unintentional wt loss/11% wt change within 1 year, infected R hip, and no current EN support order (Resolved) Expected Outcomes/Goals - Monitor appetite, PO intakes, and provision of EN support w/ goal of pt meeting at least 80% of estimated nutritional needs, labs trending WNL, normal GI function, and skin integrity/wt maintenance Dietitian Recommendations * Continue CCHO, 2 gm Na diet * Continue Glucerna 1.5 at 55 ml/hr (goal rate), Oracio BID, Free Water Flush: 200 ml Q6h via GT EN Provides: 2140 kcal/day, 114 gm protein/day, and 1802 ml free water EN Meets: 95% of upper kcals, 88% of upper PRO, and 90% of lower fluids * Consider wound supplements: 250mg VIT C, 60mg ZnSO4 BID Follow Up Moderate Risk: F/U in 3-5 days GS,MPH, RD
--- NOTE | 2022-05-30 11:22 | NUR ---
Dietitian Recommendations * Continue CCHO, 2 gm Na diet * Continue Glucerna 1.5 at 55 ml/hr (goal rate), Oracio BID, Free Water Flush: 200 ml Q6h via GT EN Provides: 2140 kcal/day, 114 gm protein/day, and 1802 ml free water EN Meets: 95% of upper kcals, 88% of upper PRO, and 90% of lower fluids * Consider wound supplements: 250mg VIT C, 60mg ZnSO4 BID GS, MPH, RD Please refer to Nutrition F/U for further details
[2022-05-30 11:37] VITALS: BP_SYST 103
--- NOTE | 2022-05-30 12:30 | NUR ---
CM: Faxed updated clinical to Greg/admission at [facility], the patient is no longer need the isolation bed. See Dr Henriquez ' s order. Addendum: 05/30/22 at 1527 by Miriam Ryan RN Per Greg: no bed until next Sunday 06/03 and pending auth from insurance.
[2022-05-30 15:29] VITALS: BP_SYST 116
[2022-05-30 19:00] VITALS: BP_SYST 133
[2022-05-30 20:00] VITALS: BP_SYST 133
[2022-05-30 22:42] VITALS: BP_SYST 112
[2022-05-31] MEDS: oxyCODONE HCL 10 MG TAB.ER.12H PO PRN ×3 (01:14→13:01)
[2022-05-31] MEDS: LEVOTHYROXINE SODIUM 0.05 MG TABLET GT SCH (06:03)
[2022-05-31 08:52] VITALS: BP_SYST 127
[2022-05-31] MEDS: CARVEDILOL 25 MG TABLET (COREG) GT SCH ×2 (09:09→20:37)
[2022-05-31] MEDS: MILK OF MAGNESIA 30 ML UDC GT SCH (09:09)
[2022-05-31] MEDS: amLODIPine BESYLATE 5 MG TABLET GT SCH ×2 (09:10→22:08)
[2022-05-31] MEDS: GEMFIBROZIL 600 MG TABLET (LOPID) GT SCH (09:10)
[2022-05-31] MEDS: ENOXAPARIN SODIUM 40 MG/0.4 ML SYRINGE SUBCUT SCH (09:10)
[2022-05-31] MEDS: SULFAMETHOXAZOLE/TRIMETHOPR DS 1 TABLET PO SCH ×2 (09:10→20:37)
[2022-05-31] MEDS: MORPHINE SULFATE 30 MG TABLET.SA PO SCH ×2 (09:10→20:37)
[2022-05-31] MEDS: CHLORTHALIDONE 25 MG TABLET (HYGROTON) GT SCH (10:33)
--- NOTE | 2022-05-31 10:35 | NUR ---
Nutrition F/U: Admitting Diagnosis Septic arthritis Reviewed Pertinent Medical/Surgical Hx Medical Record; pt Medical History Comment: Per EMR review, 57 YOM w/ PMH of HTN, DM, hypothyroidism, GT, chronically bedbound who was brought into the ED for evaluation of R thigh wound infection. Pt is from [facility]. Pt is a poor historian although did state that on November 08, 2021 he was admitted to [facility] for respiratory infection. He soon later developed R hip pain. This was evaluated and found to be septic arthritis. He underwent posterior hip irrigation and debridement with possible IR catheter drain placement. He was discharged 2 weeks later to a nursing facility. He is unsure whether he received IV antibiotics for his infection. He was brought to the hospital as his pain has worsened. He has been unable to ambulate since his initial onset in November. Has been bedbound in [facility]. 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 Per ortho surgeon notes, pt has significant erosive changes 2/2 chronic septic hip. He will likely need resection arthroplasty with ABX spacer placement followed by two-stage procedure. This should be done at an academic center given complexity associated with the procedure. S/p ST evaluation 05/26: ok for regular textures 05/30: Pt has been cleared for DC to SNF, no need for isolation bed anymore. Bed will likely be ready 06/03 Subjective Information: Pt is getting D/C to SNF on the per pts chart. RD visited pt room and s/w pt. Pt had just eaten breakfast. He attests to eating well though he doesnt typically eat that much. Per pt chart and pt, he is ready for the g tube to come out. He feels he doesnt need it anymore and is eating enough. RD witnessed the TF was nut running currently. RD suggested Ensure ONS to help make sure he gets his nutrition, if the g tube is removed; pt agreeable. Pt attests to feeling nauseous for the past few days and feeling a bit constipated, last documented BM was 05/26. Current Diet Order/Nutrition Support: CCHO, 2gNa x 6 days Glucerna 1.5 at 55mL/hr (goal rate), Oracio BID; Free WF 200mL Q6H via GT x 7 days Pertinent Medications: Synthroid, oxycodone, Lovenox, Lopid, Hygroton, Coreg Pertinent Labs: Drawn 05/27 - K 3.3 L, BG 86 NL, POC BG 113 H, WBC 13.1 H Height (Feet) 5 feet Height (Inches) 6.00 inches Weight (Pounds) 179 pounds/ 81.193 kg Body Mass Index 28.89 kg/m2 Usual Weight 200 lbs %UBW 90 %IBW 126 [place]/Adjusted Body Weight 142#/64.5 kg. 151#/68.8 kg Recent Weight Change Yes - 21# unintentional wt loss/11% wt change within 1 year Weight Status Overweight Last BM May 26, 2022 Food Allergies No Usual Diet At Home Regular per nursing nutritional screening Skin Integrity Comment: Noah scale 18: right thigh erythema, sacrum w/ intertriginous dermatitis Edema: BLE 1+ pitting 05/30 Current % PO Fair, improving 67% x 10 meals Estimated Energy Expenditure (kcals/day) 2570-9568 (30-35 kcal/kg IBW d/t obesity, wound healing, possible Sx) Estimated Protein Required (g/day) 97-129 (1.5-2 gm/kg IBW d/t obesity, wound healing, possible Sx) Estimated Fluid Required (l/day) 2-2.4 (1 ml/kcal/day for adult maintenance) Problem/Etiology/Signs/Symptoms * Increased nutritional needs R/T metabolic demands AEB estimated nutritional requirements for wound healing and possible Sx (on-going) * Severe malnutrition in the context of chronic illness R/T inadequate protein-energy intake w/ increased protein-energy needs a/w wound healing and possible Sx AEB minimal PO intakes, 21# unintentional wt loss/11% wt change within 1 year, infected R hip, and no current EN support order (Resolved) Expected Outcomes/Goals - Monitor appetite, PO intakes, and provision of EN support w/ goal of pt meeting at least 80% of estimated nutritional needs, labs trending WNL, normal GI function, and skin integrity/wt maintenance Dietitian Recommendations * Continue CCHO, 2 gm Na diet * If medically appropriate, d/c GT feedings. Pt is anxious for the GT to come out and pt is eating better (avg of 67% x10 meals) * Rec Ensure HP BID * Consider wound supplements: 250mg VIT C, 60mg ZnSO4 BID Follow Up Moderate Risk: F/U in 3-5 days GS,MPH, RD
--- NOTE | 2022-05-31 10:37 | NUR ---
Dietitian Recommendations * Continue CCHO, 2 gm Na diet * If medically appropriate, d/c GT feedings. Pt is anxious for the GT to come out and pt is eating better (avg of 67% x10 meals) * Rec Ensure HP BID * Consider wound supplements: 250mg VIT C, 60mg ZnSO4 BID GS, MPH, RD Please refer to Nutrition F/U for further details
[2022-05-31 12:00] VITALS: BP_SYST 127
[2022-05-31 16:00] VITALS: BP_SYST 120
[2022-05-31 19:40] VITALS: BP_SYST 128
--- NOTE | 2022-05-31 19:40 | NUR ---
PM ASSESSMENT; -Pt is ax/o4,resting in bed comfortably.Pt denies any chest pain,pain,sob,or any acute distress. Discussed poc,all safety measures,pt verbalized understanding. Generalized rashes noted. Instructed not to get OOB by self to use call light for assistance,pt verbalized understanding. Fall precaution in place. Call light w/in reach,side rails x3,call light w/in reach. Cont to monitor pt.
[2022-05-31] MEDS: DIPHENHYDRAMINE HCL 12.5 MG/5 ML UDC PO PRN (22:08)
--- NOTE | 2022-05-31 22:08 | NUR ---
NOTES; -Pt is c/o generalized itchiness,gave Benadryl po for itchiness and Norvac po for bp. will cont to monitor pt.
[2022-06-01] VITALS (7 sets, daily range): BP systolic 110–126
--- NOTE | 2022-06-01 02:50 | NUR ---
ROUNDS; -Pt awakes,resting in bed comfortably. Pt denies any pain,sob,or any acute distress. Bed alarmed,side rails x3, call light w/in reach. Cont to monitor pt.
[2022-06-01] MEDS: oxyCODONE HCL 10 MG TAB.ER.12H PO PRN ×3 (05:01→19:40)
[2022-06-01] MEDS: DIPHENHYDRAMINE HCL 12.5 MG/5 ML UDC PO PRN ×3 (05:01→19:40)
[2022-06-01] MEDS: LEVOTHYROXINE SODIUM 0.05 MG TABLET GT SCH (06:12)
--- NOTE | 2022-06-01 06:36 | NUR ---
CLOSING NOTES; -Pt is resting in bed comfortably. No s/s any chest pain,pain,sob,or any acute distress noted. Fall precaution in place. Call light w/in reach,side rails x3,call light w/in reach. Pt's condition stable. will endorse to next nurse to cont care.
[2022-06-01] MEDS: MORPHINE SULFATE 30 MG TABLET.SA PO SCH ×2 (09:26→22:28)
[2022-06-01] MEDS: CARVEDILOL 25 MG TABLET (COREG) GT SCH ×2 (09:28→22:27)
[2022-06-01] MEDS: GEMFIBROZIL 600 MG TABLET (LOPID) GT SCH (09:28)
[2022-06-01] MEDS: SULFAMETHOXAZOLE/TRIMETHOPR DS 1 TABLET PO SCH ×2 (09:29→22:25)
[2022-06-01] MEDS: MILK OF MAGNESIA 30 ML UDC GT SCH (09:29)
[2022-06-01] MEDS: amLODIPine BESYLATE 5 MG TABLET GT SCH ×2 (09:29→22:27)
[2022-06-01] MEDS: CHLORTHALIDONE 25 MG TABLET (HYGROTON) GT SCH (09:30)
[2022-06-01] MEDS: ENOXAPARIN SODIUM 40 MG/0.4 ML SYRINGE SUBCUT SCH (09:30)
--- NOTE | 2022-06-01 19:35 | NUR ---
Opening note Received SBAR report from [employer]. Received patient resting in bed awake, AOx4. No distress. Sharita reports he was just medicated for pain. No distress, and nonlabored breathing on room air. IV to LFA is SL. Bed is locked in lowest position, side rails up 3x, bed alarm on and call light w/in reach.
--- NOTE | 2022-06-01 22:40 | NUR ---
Meds Scheduled meds given. Patient swallowed pills two at a time with water. Fingerstick BS result was 101mg/dL.
[2022-06-02 00:09] VITALS: BP_SYST 112
[2022-06-02] MEDS: DIPHENHYDRAMINE HCL 12.5 MG/5 ML UDC PO PRN ×2 (06:20→18:09)
[2022-06-02] MEDS: oxyCODONE HCL 10 MG TAB.ER.12H PO PRN ×3 (06:20→18:09)
[2022-06-02] MEDS: LEVOTHYROXINE SODIUM 0.05 MG TABLET GT SCH (07:11)
--- NOTE | 2022-06-02 07:25 | NUR ---
closing note endorsed care, stable
[2022-06-02 09:02] VITALS: BP_SYST 119
[2022-06-02] MEDS: MORPHINE SULFATE 30 MG TABLET.SA PO SCH ×2 (09:06→21:32)
[2022-06-02] MEDS: SULFAMETHOXAZOLE/TRIMETHOPR DS 1 TABLET PO SCH ×2 (09:06→21:31)
[2022-06-02] MEDS: GEMFIBROZIL 600 MG TABLET (LOPID) GT SCH (09:06)
[2022-06-02] MEDS: CARVEDILOL 25 MG TABLET (COREG) GT SCH ×2 (09:06→21:32)
[2022-06-02] MEDS: ENOXAPARIN SODIUM 40 MG/0.4 ML SYRINGE SUBCUT SCH (09:07)
[2022-06-02] MEDS: MILK OF MAGNESIA 30 ML UDC GT SCH (09:07)
[2022-06-02] MEDS: CHLORTHALIDONE 25 MG TABLET (HYGROTON) GT SCH (10:07)
[2022-06-02] MEDS: amLODIPine BESYLATE 5 MG TABLET GT SCH ×2 (10:07→21:31)
[2022-06-02 13:35] VITALS: BP_SYST 132
[2022-06-02 18:16] VITALS: BP_SYST 133
--- NOTE | 2022-06-02 19:00 | NUR ---
Patient c/o pain not being managed well and suggested to change Oxycontin frequency to Q4 instead of Q6. Then routine Morphine tab to 9AM and 6PM instead of Q12 (9-9). Called Dr. Henry and spoke to Dr. Lopez, orientation & mobility specialist MD. and said that not to change the Oxycontin frequency. Dr. Lopez will talk to the patient tomorrow morning.
[2022-06-02 20:05] VITALS: BP_SYST 111
[2022-06-03 00:19] VITALS: BP_SYST 109
[2022-06-03] MEDS: oxyCODONE HCL 10 MG TAB.ER.12H PO PRN ×3 (01:01→17:31)
[2022-06-03] MEDS: LEVOTHYROXINE SODIUM 0.05 MG TABLET GT SCH (06:26)
--- NOTE | 2022-06-03 06:45 | NUR ---
Closing notes Pt asleep, easily awakens, no s/s distress noted. No c/o pain at this time. BS checked 92. Call light/items within reach. Bed low, locked, siderails up x3, alarm on. To endorse to AM nurse.
--- NOTE | 2022-06-03 07:53 | NUR ---
PHYSICAL THERAPY CO-SIGN The Physical Therapy Progress Notes documented by Violin Teacher have been reviewed. Reviewed/Co-Signed by: Haroldo Salas Documentation Done by: BERTRAND SHELBY PTA Addendum: 06/03/22 at 0753 by Haroldo Salas PT Amended: Links added.
[2022-06-03 07:56] VITALS: BP_SYST 122
[2022-06-03] MEDS: GEMFIBROZIL 600 MG TABLET (LOPID) GT SCH (08:31)
[2022-06-03] MEDS: MORPHINE SULFATE 30 MG TABLET.SA PO SCH ×2 (08:31→21:28)
[2022-06-03] MEDS: amLODIPine BESYLATE 5 MG TABLET GT SCH ×2 (08:31→21:28)
[2022-06-03] MEDS: CARVEDILOL 25 MG TABLET (COREG) GT SCH ×2 (08:33→21:28)
[2022-06-03] MEDS: ENOXAPARIN SODIUM 40 MG/0.4 ML SYRINGE SUBCUT SCH (08:34)
[2022-06-03] MEDS: MILK OF MAGNESIA 30 ML UDC GT SCH (08:34)
[2022-06-03] MEDS: SULFAMETHOXAZOLE/TRIMETHOPR DS 1 TABLET PO SCH ×2 (08:34→21:28)
[2022-06-03] MEDS: CHLORTHALIDONE 25 MG TABLET (HYGROTON) GT SCH (08:35)
--- NOTE | 2022-06-03 10:28 | NUR ---
Discharge Planning: DCP faxed pt updated clinicals to [facility] [phone]. DCP to follow up
[2022-06-03 11:41] VITALS: BP_SYST 113
--- NOTE | 2022-06-03 15:24 | NUR ---
WOUND EVALUATION: Wound Consult received from Dr. Henry. Thank you, Dr. Henry, for the consult. Patient received in a [place] Bed with an Isoflex AMY mattress, awake, alert, and oriented. Patient is unable to turn independently. Noah Score is a 14. Past Medical History: Hypertension, Diabetes Mellitus, Hypothyroidism, G-tube, chronic bedbound status, Posterior Right Hip Irrigation and Debridement. Recent Labs: WBC 13.1, RBC 3.63, hemoglobin 10.6, hematocrit 31.0, ESR 87, potassium 3.3, albumin 2.9, POC glucose 119. Microbiology: Blood culture results x2 negative. MRSA screen results positive. Right Anterior Pelvic Wound culture results positive for Acinetobacter Baumannii/Haemol ([employer]), and Staphylococcus Aureus. Intrinsic factors that delay wound healing: Diabetes Mellitus, Hypoalbuminemia, Hyperglycemia. Extrinsic factors that delay wound healing: Decreased mobility, chronic bedbound status. Per assessment by Dr. Henry: "Septic arthritis of the right hip Hyponatremia Normocytic anemia likely secondary to chronic disease Hypokalemia hypertension, diabetes, hypothyroidism, G-tube chronic bedbound" Per assessment by Dr. Rothman: "Right lower extremity exam: Patient has healed previous posterior hip incision from previous I&D. There is a large granulated wound along the anterior groin with serous drainage noted. There is mild surrounding redness around the anterior wound. No drainage from posterior wound. He does have severe hip pain with any form of motion. He does tolerate knee range of motion although states that moving his knee does cause hip pain. Does not have any significant redness or swelling around his right knee, ankle, or foot. He is nontender throughout his distal thigh, knee, tibia, fibula, ankle, or foot EHL, FHL, GS, TA intact Sensation intact in the right lower extremity Vascular: 1+ DP pulse" Wound Assessment: 1. Right Anterior Pelvis Wound, present on admission. Site is a former surgical site (irrigation and debridement) of the Right Hip with Septic Arthritis. Wound bed has 95% dark red hyper granulated tissue, 5% black-colored tissue. No odor, scant sanguineous drainage. Venus-wound intact, surrounding tissue (360 degrees) has erythema and induration. Measures Measures 2.4 cm x 2.2 cm. Recommend: Cleanse wound with normal saline. Apply moisture barrier cream to venus-wound. Apply hydrogel to wound bed. Pack wound with 1/4 inch iodoform packing strip (very small amount required). Cover with alginate dressing, then 4x4 foam [address] ABD pad over dressing site and secure with transparent dressings. Perform wound care daily, and as needed for dressing soiling or dislodgement. 2. Buttocks/intergluteal cleft: Large area of blanchable red erythema with multiple small areas of non-intact skin with pink tissue (appears to be IAD with MASD that has converted to a stage II pressure ulcer), or an old pressure ulcer(s) site, present on admission. No odor, no drainage. Periwound's intact. Site measures 8.5 cm x 6.5 cm. Recommend: Cleanse involved areas with normal saline. Apply moisture barrier cream to involved area. Apply hydrogel to any non-intact area that is not covered by moisture barrier cream. Perform site care daily, and as needed for dressing soiling or dislodgment. Also recommend: Reposition patient side to side only every 2 hours with pillow support and off-load pressure areas with pillows for pressure re-distribution. Offload, elevate and float bilateral heels with 1 pillow lengthwise under each extremity at all times. Perform skin care and monitor skin integrity Q shift. Use moisture barrier cream on buttocks and other moisture susceptible areas QID and as needed for soiling. Initiate low air loss therapy by adding an air pump to the low air-loss mattress.
[2022-06-03 15:44] VITALS: BP_SYST 110
--- NOTE | 2022-06-03 18:01 | NUR ---
Nutrition Note: Ordered: Glucerna ONS BID (provides 440 kcals and 20g PRO) Le Avila MPH, RDN
--- NOTE | 2022-06-03 18:08 | NUR ---
CLOSING NOTE: PT WAS STABLE THROUGHOUT THE DAY. MEDICATED WITH OXYCONTIN PRN FOR RIGHT HIP PAIN. WOUND CARE ASSESSMENT AND TREATMENT DONE FOR RIGHT HIP AND SACRAL AREA WITH HERMINIO WOUND CARE NURSE. DRESSINGS ARE C/D/I. PT TOLERATED PROCEDURE WELL. STILL PENDING DC PLANNING BACK TO [place] OR TRANSFER [facility] FOR HIGHER LEVEL OF CARE FOR RIGHT HIP INFECTION. ALL CARE NEEDS MET AT THIS TIME. FALL/SAFETY PRECAUTIONS. PT ASSISTED WITH Q2 TURNS SIDE TO SIDE TO PREVENT FURTHER SKIN BREAKDOWN. CALL LIGHT WITHIN REACH. WILL ENDORSE CARE TO PM NURSE.
[2022-06-03 20:30] VITALS: BP_SYST 113
[2022-06-04] MEDS: oxyCODONE HCL 10 MG TAB.ER.12H PO PRN ×3 (00:18→12:26)
[2022-06-04 01:59] VITALS: BP_SYST 112
[2022-06-04] MEDS: LEVOTHYROXINE SODIUM 0.05 MG TABLET GT SCH (06:10)
--- NOTE | 2022-06-04 06:15 | NUR ---
Closing notes/wound care Pt alert, awake, watching TV. No s/s distress. Pt pre-medicated with Oxycontin prior to wound care. R. anterior thigh and sacral dressings changed per wound care nurse recommendations and photo taken. Pt tolerated well. Encouraged pt to reposition while in bed. Pt verb understanding. Call light within reach. Bed low, locked, siderails up x3. To endorse to AM nurse.
--- NOTE | 2022-06-04 07:30 | NUR ---
OPENING NOTE Received patient from nightshift nurse. Patient resting in bed A/O x 4 Syriac speaking. Breathing even and unlabored, no pain, no sob, no distress noted at this time. Patient has LFA IV patent on SL. Patient on bedrest. All needs met, call light within reach, bed is locked in lowest position. Will continue to monitor.
[2022-06-04 07:50] VITALS: BP_SYST 120
[2022-06-04] MEDS: MILK OF MAGNESIA 30 ML UDC GT SCH (08:57)
[2022-06-04] MEDS: CHLORTHALIDONE 25 MG TABLET (HYGROTON) GT SCH (08:58)
[2022-06-04] MEDS: CARVEDILOL 25 MG TABLET (COREG) GT SCH (08:59)
[2022-06-04] MEDS: amLODIPine BESYLATE 5 MG TABLET GT SCH (08:59)
[2022-06-04] MEDS: SULFAMETHOXAZOLE/TRIMETHOPR DS 1 TABLET PO SCH (09:00)
[2022-06-04] MEDS: MORPHINE SULFATE 30 MG TABLET.SA PO SCH (09:00)
[2022-06-04] MEDS: GEMFIBROZIL 600 MG TABLET (LOPID) GT SCH (09:00)
[2022-06-04] MEDS: ENOXAPARIN SODIUM 40 MG/0.4 ML SYRINGE SUBCUT SCH (09:01)
[2022-06-04 12:10] VITALS: BP_SYST 125
--- NOTE | 2022-06-04 12:10 | NUR ---
PATIENT ROUNDS Patient resting in bed. Breathing even and unlabored, Patient states he has pain generalized will give PRN medication, no sob, no distress noted at this time. All needs met, call light within reach, bed is locked in lowest position. Will continue to monitor.
--- NOTE | 2022-06-04 12:27 | NUR ---
Nausea/Vomitting Patient felt nauseated and threw up 600cc. Will continue to monitor. Patient did not want zofran at this moment.
--- NOTE | 2022-06-04 12:31 | NUR ---
COVID ANTIGEN ALEXANDRA TEST collected and sent to LAB.
--- NOTE | 2022-06-04 13:23 | NUR ---
Discharge Planning: [facility] arranged transport with [employer] [phone] trip#[id number] BLS time requested 3:30pm to [place] [phone] Rm [id number]. Patient packet taken to nurse station. CM and nurse aware.
[2022-06-04 13:59] VITALS: BP_SYST 125
--- NOTE | 2022-06-04 14:15 | NUR ---
August Placed a call to August to give report. Report given to JOSE Gross.
--- NOTE | 2022-06-04 16:29 | NUR ---
D/C Patient Patient given medication reconciliation form and D/C instructions. Exit Care provided. Patient verbalized understanding. MD Donovan discussed with patient the results and treatment provided. [facility] transportation for discharge to [facility]. Patient in stable condition, ID band removed. IV catheter removed, intact and dressing applied, no active bleeding. Report given to JOSE Gross at [facility]. Patient educated on pain management. All belongings sent with patient.
== END 2022-06-04 16:30 | DRG 344 ==
LOC: SED 07:55 → STU 13:24 → SMU 05-25 21:34
PROVIDERS: ADMIT Family Medicine; ATTEND Family Medicine
DX: M00.9 Pyogenic arthritis, unspecified (principal); E44.0 Moderate protein-calorie malnutrition; D63.8 Anemia in other chronic diseases classified elsewhere; E87.1 Hypo-osmolality and hyponatremia; L03.115 Cellulitis of right lower limb; E03.9 Hypothyroidism, unspecified; E11.9 Type 2 diabetes mellitus without complications; I10 Essential (primary) hypertension; E87.6 Hypokalemia; F11.20 Opioid dependence, uncomplicated; Z20.822 Contact with and (suspected) exposure to COVID-19; Z74.01 Bed confinement status; Z93.1 Gastrostomy status; Z79.899 Other long term (current) drug therapy; I25.2 Old myocardial infarction
CPT/HCPCS: 36415; 71045; 72170-TC; 72193-TC; 76376; 80048; 80053; 80202; 82962; 83605; 83735; 85025; 85610-TC; 85651-TC; 85730-TC; 86140; 87040; 87070-TC; 87075-TC; 87081; 87186-TC; 92610-GN; 93971; 96365; 96366; 96367; 96375; 97110-GP; 97116-GP; 97163-GP; 97530-GP; 99291; G0378; J1650; J1885; J1956; J2270; J2274; J2543; J3370; J3480; J7030; J7040; J7050; Q9967

== ENCOUNTER 2022-07-06 10:31 | Inpatient (IN) | payer MEDICAID ==
[~2022-07-06] VITALS: Ht 152.4 cm; Wt 73.5 kg
[~2022-07-06 10:31] MED LIST: ALPR0.5T PO; AMLO2.5T2 GT; CEL20 GT; COR25 GT; CRAN450T9 GT; HYG25 GT; LEVO-62 PO; LISI40TA13 GT; LOP600 GT; METF-518 GT; MOM GT; MORP30TA59 GT; NAPR-1172 PO; OMEP40CA20 PO; OXYC20TA55 PO; SULF1TAB48 PO; SYN50 GT
[2022-07-06 10:40] VITALS: BP_SYST 92
[2022-07-06 11:35] LABS: BASOPHILS # (AUTO) 0.1 K/uL (0.0-0.2); BASOPHILS % (AUTO) 0.7 % (0.0-2.0); EOSINOPHILS # (AUTO) 0.6 K/uL (0.0-0.4); HEMATOCRIT 28.9 % (36-54); HEMOGLOBIN 9.7 g/dL (14.0-18.0); LYMPHOCYTES # (AUTO) 0.9 K/uL (1.0-5.5); LYMPHOCYTES % (AUTO) 9.9 % (20.5-51.5); MEAN CORPUSCULAR HEMOGLOBIN 29 pg (27-31); MEAN CORPUSCULAR HGB CONC 33 % (32-36); MEAN CORPUSCULAR VOLUME 86 fL (79.0-98.0); MONOCYTES # (AUTO) 0.6 K/uL (0.0-1.0); MONOCYTES % (AUTO) 6.6 % (1.7-9.3); NEUTROPHILS # (AUTO) 7.3 K/uL (1.8-7.7); NEUTROPHILS % (AUTO) 76.8 % (40.0-70.0); PLATELET COUNT (AUTO) 190 K/uL (130-430); RED BLOOD CELL COUNT(AUTO) 3.37 MIL/uL (4.2-6.2); RED CELL DISTRIBUTION WIDTH 16.2 % (9.0-15.0); WHITE BLOOD COUNT (AUTO) 9.5 K/uL (4.8-10.8)
[2022-07-06 11:55] LABS: ANION GAP 15 (5-15); CALCIUM 9.4 mg/dL (8.4-11.0); CHLORIDE 93 mmol/L (98-107); CREATININE 3.12 mg/dL (0.55-1.30); GLUCOSE 97 mg/dL (70-99); UREA NITROGEN, BLOOD 60 mg/dL (8-21)
[2022-07-06 11:56] LABS: GFR AFRICAN AMERICAN 27 mL/min (>90)
[2022-07-06 12:02] LABS: ALANINE AMINOTRANSFERASE 18 U/L (12-78); ALBUMIN 3.6 g/dL (3.4-4.8); ASPARTATE AMINOTRANSFERASE 37 U/L (10-37); TOTAL BILIRUBIN 0.5 mg/dL (0.0-1.0)
[2022-07-06] MEDS ORDERED: NACL 0.9% 1,000 ML IV ONE ×2 (12:45→13:00)
[2022-07-06] MEDS ORDERED: PANTOPRAZOLE SODIUM 40 MG/VIAL (PROTONIX) IVP ONE (13:00)
[2022-07-06] MEDS ORDERED: MORPHINE 2 MG/ML INJ. SYRINGE IVP ONE (13:00)
[2022-07-06] MEDS ORDERED: NACL 0.9% 1,000 ML IV SCH (14:00)
[2022-07-06] MEDS ORDERED: ACET325T PO (14:14)
[2022-07-06] MEDS ORDERED: FURO-150 PO (14:14)
[2022-07-06] MEDS ORDERED: LEVO750T64 PO (14:14)
[2022-07-06] MEDS ORDERED: FLEETMO RC (14:14)
[2022-07-06] MEDS ORDERED: DIPH25CA83 PO (14:14)
[2022-07-06] MEDS ORDERED: ZINC100T2 PO (14:14)
[2022-07-06] MEDS ORDERED: METF-381 PO (14:14)
[2022-07-06] MEDS ORDERED: MULT-300 PO (14:14)
[2022-07-06] MEDS ORDERED: LACT1TAB14 PO (14:14)
[2022-07-06] MEDS ORDERED: LEVO150T8 PO (14:14)
[2022-07-06] MEDS ORDERED: DOCU-144 PO (14:14)
[2022-07-06] MEDS ORDERED: BISA10SU61 RC (14:14)
[2022-07-06] MEDS ORDERED: AMIN30LI2 PO (14:14)
[2022-07-06] MEDS ORDERED: GLUC1VIA14 I.M. (14:14)
[2022-07-06] MEDS ORDERED: ASCO500T20 PO (14:14)
[2022-07-06] MEDS ORDERED: LACT10SO7 PO (14:14)
[2022-07-06] MEDS ORDERED: VITD400 PO (14:14)
[2022-07-06 15:14] VITALS: BP_SYST 106
[2022-07-06 16:57] VITALS: BP_SYST 129
[2022-07-06] MEDS ORDERED: INSULIN REGULAR, HUMAN 100 UNITS/ML, 3 ML VIAL (humuLIN R) SUBCUT PRN (17:00)
[2022-07-06] MEDS ORDERED: MORPHINE 4 MG INJ. 4 MG/ML VIAL IVP PRN (17:00)
[2022-07-06] MEDS ORDERED: LORazepam 2 MG/ML VIAL IVP PRN (17:00)
[2022-07-06] MEDS ORDERED: MORPHINE 2 MG/ML INJ. SYRINGE IVP PRN (17:00)
[2022-07-06] MEDS ORDERED: ONDANSETRON HCL 4 MG/2 ML VIAL IVP PRN (17:00)
[2022-07-06] MEDS ORDERED: NALOXONE HCL 0.4 MG/ML AMP (NARCAN) IVP PRN (17:00)
[2022-07-06] MEDS: D5NS 1,000 ML IV SCH (18:18)
[2022-07-06 19:00] VITALS: BP_SYST 117
[2022-07-06 20:00] VITALS: BP_SYST 117
[2022-07-06] MEDS: PANTOPRAZOLE SODIUM 40 MG/VIAL (PROTONIX) IVP SCH (23:51)
[2022-07-07] MEDS: D5NS 1,000 ML IV SCH ×3 (00:17→20:06)
[2022-07-07 00:36] VITALS: BP_SYST 103
[2022-07-07] MEDS ORDERED: D5W 1,000 ML IV PRN (05:45)
[2022-07-07] MEDS ORDERED: GLUCOSE (DEXTROSE) ORAL GEL -Adults PO PRN (05:45)
[2022-07-07] MEDS ORDERED: DEXTROSE 50% JECT 50 ML DISP.SYRIN IVP PRN (05:45)
[2022-07-07 06:21] LABS: BASOPHILS # (AUTO) 0.1 K/uL (0.0-0.2); BASOPHILS % (AUTO) 0.6 % (0.0-2.0); EOSINOPHILS # (AUTO) 0.8 K/uL (0.0-0.4); EOSINOPHILS % (AUTO) 9.2 % (0.0-4.0); HEMATOCRIT 25.4 % (36-54); HEMOGLOBIN 8.5 g/dL (14.0-18.0); LYMPHOCYTES # (AUTO) 1.4 K/uL (1.0-5.5); LYMPHOCYTES % (AUTO) 15.2 % (20.5-51.5); MEAN CORPUSCULAR HEMOGLOBIN 29 pg (27-31); MEAN CORPUSCULAR HGB CONC 34 % (32-36); MEAN CORPUSCULAR VOLUME 86 fL (79.0-98.0); MONOCYTES # (AUTO) 1.2 K/uL (0.0-1.0); MONOCYTES % (AUTO) 13.5 % (1.7-9.3); NEUTROPHILS # (AUTO) 5.7 K/uL (1.8-7.7); NEUTROPHILS % (AUTO) 61.5 % (40.0-70.0); PLATELET COUNT (AUTO) 167 K/uL (130-430); RED BLOOD CELL COUNT(AUTO) 2.95 MIL/uL (4.2-6.2); WHITE BLOOD COUNT (AUTO) 9.2 K/uL (4.8-10.8)
[2022-07-07 06:47] LABS: ALBUMIN 3.2 g/dL (3.4-4.8); CALCIUM 9.4 mg/dL (8.4-11.0); CREATININE 2.36 mg/dL (0.55-1.30); PHOSPHORUS 3.5 mg/dL (2.7-4.5); TOTAL BILIRUBIN 0.4 mg/dL (0.0-1.0)
[2022-07-07 08:00] VITALS: BP_SYST 113
[2022-07-07] MEDS ORDERED: SODIUM BICARBONATE 8.4% VIAL 50 MEQ/50 ML VIAL INJ ONE (10:30)
[2022-07-07] MEDS ORDERED: MILK OF MAGNESIA 30 ML UDC PO SCH (10:45)
[2022-07-07] MEDS ORDERED: GLUCAGON HCL 1 MG I.M. PRN (10:45)
[2022-07-07] MEDS ORDERED: NAPROXEN 250 MG TABLET PO PRN (10:45)
[2022-07-07] MEDS ORDERED: ACETAMINOPHEN 325 MG TABLET PO PRN (10:45)
[2022-07-07] MEDS ORDERED: ALPRAZolam 0.25 MG TABLET PO PRN (10:45)
[2022-07-07] MEDS ORDERED: LEVOTHYROXINE SODIUM 0.05 MG TABLET PO SCH (10:45)
[2022-07-07] MEDS ORDERED: OMEPRAZOLE Non-Formulary 20 MG CAPSULE.DR PO SCH (10:45)
[2022-07-07] MEDS ORDERED: BISACODYL 10 MG/SUPPOSITORY RC PRN (10:45)
[2022-07-07] MEDS ORDERED: oxyCODONE HCL 10 MG TAB.ER.12H PO SCH (10:45)
[2022-07-07] MEDS ORDERED: INSULIN REGULAR, HUMAN 100 UNITS/ML, 3 ML VIAL (humuLIN R) SUBCUT PRN (10:45)
[2022-07-07] MEDS ORDERED: ONDANSETRON HCL 4 MG/2 ML VIAL IVP PRN (10:45)
[2022-07-07] MEDS ORDERED: MORPHINE 2 MG/ML INJ. SYRINGE IVP ONE (10:45)
[2022-07-07] MEDS ORDERED: NALOXONE HCL 0.4 MG/ML AMP (NARCAN) IVP PRN (10:45)
[2022-07-07] MEDS ORDERED: SODIUM BICARBONATE 8.4% JECT 50 MEQ/50 ML SYRINGE IVP ONE (11:00)
[2022-07-07] MEDS ORDERED: SODIUM PHOSPHATE,MONO-DIBASIC 133 ML ENEMA RC PRN (11:45)
[2022-07-07] MEDS ORDERED: MULTIVITS,CA,MINERALS/IRON/FA 1 TABLET PO ONE (12:15)
[2022-07-07] MEDS ORDERED: LACTULOSE 20 GM/30 ML UDC PO ONE (12:15)
[2022-07-07] MEDS ORDERED: LACTOBACILLUS RHAMNOSUS GG 1 CAP CAPSULE PO ONE (12:15)
[2022-07-07] MEDS ORDERED: CHLORTHALIDONE 25 MG TABLET (HYGROTON) PO ONE (12:15)
[2022-07-07] MEDS ORDERED: ASCORBIC ACID 500 MG TABLET PO ONE (12:15)
[2022-07-07] MEDS ORDERED: FUROSEMIDE 20 MG TABLET PO ONE (12:15)
[2022-07-07] MEDS: oxyCODONE HCL 5 MG TABLET PO PRN ×2 (12:28→23:09)
[2022-07-07 12:42] VITALS: BP_SYST 118
[2022-07-07] MEDS: PANTOPRAZOLE SODIUM 40 MG/VIAL (PROTONIX) IVP SCH ×2 (12:44→20:53)
[2022-07-07 15:58] VITALS: BP_SYST 109
[2022-07-07] MEDS: DIPHENHYDRAMINE HCL 25 MG CAPSULE PO PRN (18:47)
[2022-07-07 20:05] VITALS: BP_SYST 114
[2022-07-07] MEDS: amLODIPine BESYLATE 5 MG TABLET PO SCH (20:53)
[2022-07-07] MEDS: MORPHINE SULFATE 30 MG TABLET.SA PO SCH (20:53)
[2022-07-07] MEDS: CARVEDILOL 25 MG TABLET (COREG) PO SCH (20:54)
[2022-07-07] MEDS ORDERED: METFORMIN HCL PO SCH (21:00)
[2022-07-07] MEDS ORDERED: SULFAMETHOXAZOLE/TRIMETHOPR DS 1 TABLET PO SCH (21:00)
[2022-07-08] VITALS: BP_SYST 90
[2022-07-08] MEDS: oxyCODONE HCL 5 MG TABLET PO PRN (05:26)
[2022-07-08] MEDS: D5NS 1,000 ML IV SCH ×3 (05:26→20:57)
[2022-07-08] MEDS: LEVOTHYROXINE SODIUM 0.15 MG TABLET PO SCH (06:34)
[2022-07-08] MEDS ORDERED: LEVOTHYROXINE SODIUM 0.05 MG TABLET PO SCH (07:00)
[2022-07-08 07:18] LABS: ALBUMIN 2.7 g/dL (3.4-4.8); CALCIUM 8.7 mg/dL (8.4-11.0); CREATININE 1.41 mg/dL (0.55-1.30); PHOSPHORUS 2.2 mg/dL (2.7-4.5); TOTAL BILIRUBIN 0.3 mg/dL (0.0-1.0)
[2022-07-08 08:19] VITALS: BP_SYST 83
[2022-07-08 08:47] LABS: BASOPHILS # (AUTO) 0.1 K/uL (0.0-0.2); BASOPHILS % (AUTO) 0.9 % (0.0-2.0); EOSINOPHILS % (AUTO) 12.2 % (0.0-4.0); HEMATOCRIT 23.2 % (36-54); HEMOGLOBIN 8.1 g/dL (14.0-18.0); LYMPHOCYTES # (AUTO) 2.2 K/uL (1.0-5.5); LYMPHOCYTES % (AUTO) 26.5 % (20.5-51.5); MEAN CORPUSCULAR HEMOGLOBIN 29 pg (27-31); MEAN CORPUSCULAR HGB CONC 35 % (32-36); MEAN CORPUSCULAR VOLUME 84 fL (79.0-98.0); MONOCYTES # (AUTO) 1.1 K/uL (0.0-1.0); MONOCYTES % (AUTO) 12.9 % (1.7-9.3); NEUTROPHILS % (AUTO) 47.5 % (40.0-70.0); PLATELET COUNT (AUTO) 159 K/uL (130-430); RED BLOOD CELL COUNT(AUTO) 2.77 MIL/uL (4.2-6.2); RED CELL DISTRIBUTION WIDTH 16.1 % (9.0-15.0); WHITE BLOOD COUNT (AUTO) 8.3 K/uL (4.8-10.8)
[2022-07-08] MEDS: CHLORTHALIDONE 25 MG TABLET (HYGROTON) PO SCH (09:00)
[2022-07-08] MEDS ORDERED: GOLYTELY / COLYTE SOLUTION 4 LITERS PO ONE (09:00)
[2022-07-08] MEDS ORDERED: NON-FORMULARY MEDICATION (Amino Acids/Protein Hydrolys (Pro-Stat Liquid) 30 ML) PO SCH (09:00)
[2022-07-08] MEDS: FUROSEMIDE 20 MG TABLET PO SCH (09:00)
[2022-07-08] MEDS ORDERED: levoFLOXacin 500 MG TABLET PO SCH (09:00)
[2022-07-08] MEDS: amLODIPine BESYLATE 5 MG TABLET PO SCH ×2 (09:00→21:00)
[2022-07-08] MEDS ORDERED: NON-FORMULARY MEDICATION (Cranberry Fruit (Cranberry) 450 MG) GT SCH (09:00)
[2022-07-08] MEDS: MORPHINE SULFATE 30 MG TABLET.SA PO SCH ×2 (09:00→20:57)
[2022-07-08] MEDS ORDERED: levoFLOXacin 750 MG TABLET PO SCH (09:00)
[2022-07-08] MEDS: CARVEDILOL 25 MG TABLET (COREG) PO SCH ×2 (09:00→21:00)
[2022-07-08] MEDS: lisinopriL 20 MG TABLET PO SCH (09:00)
[2022-07-08] MEDS: PANTOPRAZOLE SODIUM 40 MG/VIAL (PROTONIX) IVP SCH ×2 (09:29→20:56)
[2022-07-08] MEDS: LACTULOSE 20 GM/30 ML UDC PO SCH (09:51)
[2022-07-08] MEDS: GEMFIBROZIL 600 MG TABLET (LOPID) PO SCH (09:53)
[2022-07-08] MEDS: CHOLECALCIFEROL (VITAMIN D3) 5,000 UNIT TABLET PO SCH (09:54)
[2022-07-08] MEDS: LACTOBACILLUS RHAMNOSUS GG 1 CAP CAPSULE PO SCH (09:54)
[2022-07-08] MEDS: MULTIVITS,CA,MINERALS/IRON/FA 1 TABLET PO SCH (09:54)
[2022-07-08] MEDS: CITALOPRAM HYDROBROMIDE 20 MG TABLET PO SCH (09:54)
[2022-07-08] MEDS: DOCUSATE SODIUM 100 MG CAPSULE PO SCH (09:55)
[2022-07-08] MEDS: POLYETHYLENE GLYCOL 3350, 17 GM/ POWD.PACK PO SCH ×2 (09:55→20:57)
[2022-07-08] MEDS ORDERED: NA PHOS 15 MM in NS 250 ML IV ONE (11:00)
[2022-07-08] MEDS ORDERED: MAGNESIUM SULFATE 50 ML IV ONE (12:00)
[2022-07-08] MEDS ORDERED: ALBUMIN HUMAN 25% 100 ML IV ONE (12:30)
[2022-07-08 12:47] VITALS: BP_SYST 91
[2022-07-08 13:13] LABS: BASOPHILS # (AUTO) 0.1 K/uL (0.0-0.2); BASOPHILS % (AUTO) 0.8 % (0.0-2.0); EOSINOPHILS # (AUTO) 0.8 K/uL (0.0-0.4); EOSINOPHILS % (AUTO) 10.5 % (0.0-4.0); HEMATOCRIT 23.4 % (36-54); LYMPHOCYTES # (AUTO) 1.6 K/uL (1.0-5.5); LYMPHOCYTES % (AUTO) 21.3 % (20.5-51.5); MEAN CORPUSCULAR HEMOGLOBIN 29 pg (27-31); MEAN CORPUSCULAR HGB CONC 34 % (32-36); MEAN CORPUSCULAR VOLUME 84 fL (79.0-98.0); MONOCYTES % (AUTO) 13.4 % (1.7-9.3); NEUTROPHILS # (AUTO) 4.2 K/uL (1.8-7.7); PLATELET COUNT (AUTO) 148 K/uL (130-430); RED BLOOD CELL COUNT(AUTO) 2.78 MIL/uL (4.2-6.2); WHITE BLOOD COUNT (AUTO) 7.7 K/uL (4.8-10.8)
[2022-07-08] MEDS ORDERED: CHOL125C7 PO (15:11)
[2022-07-08] MEDS ORDERED: CITA40TA22 PO (15:17)
[2022-07-08] MEDS ORDERED: METF-379 PO (15:17)
[2022-07-08] MEDS ORDERED: NA P133E41 RC (15:17)
[2022-07-08] MEDS ORDERED: SENN8.6T19 PO (15:18)
[2022-07-08 17:19] VITALS: BP_SYST 100
[2022-07-08 20:00] VITALS: BP_SYST 112
[2022-07-08] MEDS: ASCORBIC ACID 500 MG TABLET PO SCH (20:57)
[2022-07-09] VITALS: BP_SYST 116
[2022-07-09] MEDS: LEVOTHYROXINE SODIUM 0.15 MG TABLET PO SCH (06:17)
[2022-07-09] MEDS: D5NS 1,000 ML IV SCH (06:18)
[2022-07-09 06:28] LABS: BASOPHILS # (AUTO) 0.1 K/uL (0.0-0.2); BASOPHILS % (AUTO) 0.8 % (0.0-2.0); EOSINOPHILS # (AUTO) 0.9 K/uL (0.0-0.4); EOSINOPHILS % (AUTO) 13.4 % (0.0-4.0); HEMOGLOBIN 7.8 g/dL (14.0-18.0); LYMPHOCYTES % (AUTO) 28.8 % (20.5-51.5); MEAN CORPUSCULAR HEMOGLOBIN 29 pg (27-31); MEAN CORPUSCULAR HGB CONC 34 % (32-36); MEAN CORPUSCULAR VOLUME 86 fL (79.0-98.0); MONOCYTES # (AUTO) 0.8 K/uL (0.0-1.0); MONOCYTES % (AUTO) 11.7 % (1.7-9.3); NEUTROPHILS # (AUTO) 3.1 K/uL (1.8-7.7); NEUTROPHILS % (AUTO) 45.3 % (40.0-70.0); PLATELET COUNT (AUTO) 147 K/uL (130-430); RED BLOOD CELL COUNT(AUTO) 2.67 MIL/uL (4.2-6.2); RED CELL DISTRIBUTION WIDTH 16.3 % (9.0-15.0); WHITE BLOOD COUNT (AUTO) 6.8 K/uL (4.8-10.8)
[2022-07-09 07:11] LABS: ALBUMIN 2.8 g/dL (3.4-4.8); CREATININE 1.07 mg/dL (0.55-1.30); PHOSPHORUS 2.8 mg/dL (2.7-4.5); TOTAL BILIRUBIN 0.4 mg/dL (0.0-1.0)
[2022-07-09] MEDS ORDERED: POLY17PO4 PO (10:41)
[2022-07-09 11:25] VITALS: BP_SYST 124
[2022-07-09] MEDS: PANTOPRAZOLE SODIUM 40 MG/VIAL (PROTONIX) IVP SCH ×2 (12:52→20:56)
[2022-07-09] MEDS: LACTULOSE 20 GM/30 ML UDC PO SCH (12:53)
[2022-07-09] MEDS: CARVEDILOL 25 MG TABLET (COREG) PO SCH ×2 (12:55→21:00)
[2022-07-09] MEDS: MULTIVITS,CA,MINERALS/IRON/FA 1 TABLET PO SCH (12:56)
[2022-07-09] MEDS: GEMFIBROZIL 600 MG TABLET (LOPID) PO SCH (12:56)
[2022-07-09] MEDS: DOCUSATE SODIUM 100 MG CAPSULE PO SCH (12:57)
[2022-07-09] MEDS: CITALOPRAM HYDROBROMIDE 20 MG TABLET PO SCH (12:58)
[2022-07-09] MEDS: LACTOBACILLUS RHAMNOSUS GG 1 CAP CAPSULE PO SCH (12:58)
[2022-07-09] MEDS: MORPHINE SULFATE 30 MG TABLET.SA PO SCH ×2 (12:59→21:00)
[2022-07-09] MEDS: POLYETHYLENE GLYCOL 3350, 17 GM/ POWD.PACK PO SCH ×2 (12:59→20:58)
[2022-07-09] MEDS: lisinopriL 20 MG TABLET PO SCH (13:00)
[2022-07-09] MEDS: ASCORBIC ACID 500 MG TABLET PO SCH ×2 (13:01→20:58)
[2022-07-09] MEDS: CHOLECALCIFEROL (VITAMIN D3) 5,000 UNIT TABLET PO SCH (13:01)
[2022-07-09] MEDS: CHLORTHALIDONE 25 MG TABLET (HYGROTON) PO SCH (13:02)
[2022-07-09] MEDS: FUROSEMIDE 20 MG TABLET PO SCH (13:03)
[2022-07-09] MEDS: amLODIPine BESYLATE 5 MG TABLET PO SCH ×2 (13:04→21:00)
[2022-07-09 17:03] VITALS: BP_SYST 105
[2022-07-09] MEDS: KCL 20 mEq in 100 mL (PREMIX) 100 ML IV SCH ×2 (18:54→20:56)
[2022-07-09 20:05] VITALS: BP_SYST 96
[2022-07-09] MEDS: oxyCODONE HCL 5 MG TABLET PO PRN (20:58)
[2022-07-09 22:56] VITALS: BP_SYST 97
[2022-07-09] MEDS: DIPHENHYDRAMINE HCL 25 MG CAPSULE PO PRN (22:56)
[2022-07-10] MEDS: MORPHINE SULFATE 30 MG TABLET.SA PO SCH (00:17)
[2022-07-10 00:28] VITALS: BP_SYST 99
== END 2022-07-10 02:35 | DRG 241 ==
LOC: SED 10:31 → STU 13:51
PROVIDERS: ADMIT Preventive Medicine Preventive Medicine/Occupational Environmental Medicine; ATTEND Preventive Medicine Preventive Medicine/Occupational Environmental Medicine
DX: K29.71 Gastritis, unspecified, with bleeding (principal); N17.0 Acute kidney failure with tubular necrosis; R65.11 Systemic inflammatory response syndrome (SIRS) of non-infectious origin with acute organ dysfunction; E44.0 Moderate protein-calorie malnutrition; E87.1 Hypo-osmolality and hyponatremia; K20.91 Esophagitis, unspecified with bleeding; E83.39 Other disorders of phosphorus metabolism; K27.4 Chronic or unspecified peptic ulcer, site unspecified, with hemorrhage; E88.09 Other disorders of plasma-protein metabolism, not elsewhere classified; E11.65 Type 2 diabetes mellitus with hyperglycemia; D64.9 Anemia, unspecified; E03.9 Hypothyroidism, unspecified; G89.4 Chronic pain syndrome; E83.42 Hypomagnesemia; I10 Essential (primary) hypertension; E78.5 Hyperlipidemia, unspecified; Z20.822 Contact with and (suspected) exposure to COVID-19; K21.9 Gastro-esophageal reflux disease without esophagitis; R13.10 Dysphagia, unspecified; K56.41 Fecal impaction; Z93.1 Gastrostomy status; Z68.31 Body mass index [BMI] 31.0-31.9, adult
CPT/HCPCS: 36415; 71045; 74018; 76770; 80053; 83735; 83880; 84100; 84484; 85025; 86886; 86900; 86901; 87081; 93005; 96374; 96375; 99285; C9113; G0378; J1815; J2270; J2274; J3475; J3480; J7050; Q0163